=== PATIENT | male | born 1945 | race Caucasian/White ===

== ENCOUNTER 2017-06-03 15:33 | Inpatient (IN) | payer OTHER ==
[~2017-06-03] VITALS: Ht 177.8 cm; Wt 82.4 kg
[2017-06-03] MEDS ORDERED: ACETAMINOPHEN 500 MG TAB PO STA (16:06)
[2017-06-03] MEDS ORDERED: PIPERACILLIN/TAZOBACTAM 4.5 GM/100ML D5W IV STA (16:06)
[2017-06-03] MEDS ORDERED: SODIUM CHLORIDE 0.9% 1000ML 500 ML IV ONE (16:06)
[2017-06-03] MEDS ORDERED: DEXAMETHASONE INJ 10 MG in SYRINGE 0 ML IV STA (16:10)
[2017-06-03] MEDS ORDERED: OPTIRAY 320 IV PRN (16:15)
--- NOTE | 2017-06-03 16:27 | DIAGNOSTIC IMAGING REPORT ---
CHEST ONE VIEW PORTABLE CLINICAL HISTORY: 71 years-old Male presenting with Sepsis. TECHNIQUE: Portable upright AP view of the chest was obtained. COMPARISON: None. FINDINGS: Atherosclerosis of aortic arch. Cardiac silhouette mildly enlarged. No focal opacity. No large effusion or pneumothorax. Calcified granuloma may be present at the right lung base. Osseous structures normal. Upper abdomen normal. IMPRESSION: 1. Cardiomegaly. No other convincing evidence of acute cardiopulmonary disease. Electronically signed by: Billy Bolton M.D. 06/03/2017 4:26 PM Dictated Date/Time: 06/03/2017 4:26 PM
[2017-06-03] MEDS ORDERED: ACETAMINOPHEN SUSP 160 MG/5 ML UDC ONE (16:49)
[2017-06-03 16:52] LABS: BASO % 0.3 %; BASO ABS # 0.04 K/uL (0-0.2); EOS % 0.2 %; EOS ABS # 0.02 K/uL (0-0.5); HEMATOCRIT 44.8 % (42-52); HEMOGLOBIN 15.7 g/dL (14.0-18.0); IG# 0.03 K/uL (0.00-0.02); LYMPH ABS # 1.29 K/uL (1.2-3.4); MEAN CELL VOLUME 88.7 fL (80-100); MEAN CORPUSCULAR HEMOGLOBIN 31.1 pg (25-34); MEAN PLATELET VOLUME 9.9 fL (7.4-10.4); MONO % 8.3 %; MONO ABS # 1.07 K/uL (0.11-0.59); PLATELET COUNT 177 K/uL (130-400); RED CELL DISTRIBUTION WIDTH CV 12.9 % (11.5-14.5); RED CELL DISTRIBUTION WIDTH SD 41.8 fL (36.4-46.3); WHITE BLOOD COUNT 12.95 K/uL (4.8-10.8)
[2017-06-03] MEDS ORDERED: DEXAMETHASONE **PF** INJ 10 MG/ML VIAL ONE (16:52)
[2017-06-03 17:03] LABS: PTT PATIENT 26.5 SECONDS (21.0-31.0)
[2017-06-03 17:13] LABS: ALBUMIN 3.6 gm/dl (3.4-5.0); CALCIUM 9.1 mg/dl (8.5-10.1); CREATININE 0.96 mg/dl (0.60-1.40); POTASSIUM 3.9 mmol/L (3.5-5.1)
[2017-06-03 17:15] LABS: TOTAL PROTEIN 7.7 gm/dl (6.4-8.2)
--- NOTE | 2017-06-03 17:55 | DIAGNOSTIC IMAGING REPORT ---
SOFT TISSUE NECK WITH CLINICAL HISTORY: 71 years-old Male presenting with narrowing on plain film, fever. TECHNIQUE: Multidetector CT of the neck was performed after the administration of intravenous contrast. IV contrast: 119 mL of Optiray 320.. A dose lowering technique was used consistent with the principles of ALARA (as low as reasonably achievable). COMPARISON: Radiograph from earlier the same day. CT DOSE (mGy.cm): The estimated cumulative dose is 498.46 mGy.cm. FINDINGS: Staffing Executive topogram: Unremarkable. Atherosclerosis of the carotid bifurcations without significant stenosis. Atherosclerosis of the cavernous segments of the internal carotid arteries also noted. Limited intracranial evaluation within normal limits. Inflammation noted along the right carotid space. The right jugular vein remains patent. Extensive thickening of the aryepiglottic folds. The epiglottis is normal. Mild mucosal hyperemia of the aryepiglottic folds without local nodular suspicious enhancement. There is narrowing of the airway at the level of the true and false vocal folds. Mild mucosal thickening in the maxillary sinuses, left greater than right. No lymphadenopathy though numerous small lymph nodes are evident bilaterally, the largest in the right jugulodigastric region measuring 1.3 cm in the long axis. Parotid submandibular, and thyroid glands normal. Lung apices clear. Mild degenerative changes of the cervical spine. Skull base intact. IMPRESSION: Extensive thickening of the area epiglottic folds with laryngeal narrowing, raising concern for impending airway obstruction. Consider direct visualization. The lack of focal nodular enhancement in this region decreases concern for neoplasm. Rather these findings are most concerning for an infectious or inflammatory etiology. The report will be called/faxed according to standard departmental protocol. Electronically signed by: Billy Bolton M.D. 06/03/2017 5:54 PM Dictated Date/Time: 06/03/2017 5:48 PM
[2017-06-03] MEDS ORDERED: POTA1CAP2 PO (18:08)
[2017-06-03] MEDS ORDERED: BENZOCAIN/TETRACA/BUTAM SPRAY 200 APPLN/20 GM SPRY ONE (18:25)
[2017-06-03] MEDS ORDERED: LIDOCAINE 4% W/AFRIN NASAL SOLN 4ML ONE (18:26)
[2017-06-03] MEDS ORDERED: ONDANSETRON INJ 2 MG/ML 2 ML VIAL IV PRN (19:00)
[2017-06-03] MEDS ORDERED: ALUMINUM/MAGNESIUM/SIMETH (MAALOX MAX) 30 ML UDC PO PRN (19:00)
[2017-06-03] MEDS ORDERED: MAGNESIUM HYDROXIDE SUSP 30 ML UDC PO PRN (19:00)
[2017-06-03] MEDS ORDERED: ACETAMINOPHEN 325 MG TAB PO PRN (19:00)
[2017-06-03] MEDS ORDERED: CLINDAMYCIN IV 600 MG in DEXTROSE 5% 50ML 50 ML IV SCH (19:00)
[2017-06-03] MEDS ORDERED: PIPERACILL/TAZOBAC CONSULT ACTIVE PRN (19:15)
--- NOTE | 2017-06-03 19:26 | History and Physical ---
History & Physical Date & Time of Service: Jun 03, 2017 at 19:00 Chief Complaint: Partial Airway Obstruction Primary Care Physician: Cassi Chu C.R.N.P History of Present Illness Source: patient, clinic records, hospital records Patient is a pleasant 71 y/o male, with no significant PMHx, who presented to the ED via EMS from PCP office due to abnormal soft tissue x-ray of throat. Patient has been dealing with a sore throat for roughly 1 month now. He was placed on Amoxicillin approximately 3 weeks ago. Initially he did better until about 2-3 days ago when symptoms reoccurred. This AM, he has difficulty with swallowing and worsening sore throat. He saw his PCP today who did an x-ray showing epiglottis and larynx narrowing, who encouraged him to come to [facility] ED. +fevers. Patient denies any chills, sweats, lightheadedness, dizziness, vision changes, CP, palpitations, edema, SOB, wheezing, cough, abdominal pain, nausea, vomiting, diarrhea, urinary symptoms, melena, numbness/tingling, weakness, muscle/joint pain, anxiety/depression, active bleeding, or new skin discoloration/changes. Currently, patient feels his symptoms have improved- given IV Zosyn and Dexamethasone in ED. ENT, Dr. Salazar saw patient in ED- admit on Rocephin, Dexamethasone, place in ICU for close monitoring. Past Medical/Surgical History Medical Problems: (1) Epiglottitis (2) Finger laceration involving tendon (3) No known problems Family History Denies significant family history Social History Smoking Status: Never Smoker Alcohol Use: none Drug Use: none Allergies Coded Allergies: No Known Allergies (Unverified , 04/27/15) Home Medications Scheduled Potassium Chloride (Potassium Chloride Er), 2 CAP PO DAILY Physical Exam Vital Signs Date Time Temp Pulse Resp B/P (MAP) Pulse Ox O2 Delivery O2 Flow Rate FiO2 06/03/17 17:11 75 16 133/64 95 Room Air 06/03/17 16:55 97 Room Air 06/03/17 15:42 38.8 73 153/89 96 Room Air General Appearance: no apparent distress Head: normocephalic, atraumatic Eyes: normal inspection, PERRL ENT: hearing grossly normal Neck: supple, + adenopathy present (R-side, anterior) Respiratory/Chest: lungs clear, no respiratory distress, no accessory muscle use Cardiovascular: regular rate, rhythm Abdomen/GI: normal bowel sounds, non tender, soft Back: normal inspection Extremities/Musculoskelatal: no calf tenderness, no pedal edema Neurologic/Psych: alert, normal mood/affect, oriented x 3 Skin: normal color, warm/dry, no rash Diagnostics Laboratory Results Results Past 24 Hours Test 06/03/17 16:29 06/03/17 16:46 06/03/17 17:00 Range/Units White Blood Count 12.95 4.8-10.8 K/uL Red Blood Count 5.05 4.7-6.1 M/uL Hemoglobin 15.7 14.0-18.0 g/dL Hematocrit 44.8 42-52 % Mean Corpuscular Volume 88.7 80-100 fL Mean Corpuscular Hemoglobin 31.1 25-34 pg Mean Corpuscular Hemoglobin Concent 35.0 32-36 g/dl Platelet Count 177 130-400 K/uL Mean Platelet Volume 9.9 7.4-10.4 fL Neutrophils (%) (Auto) 81.0 % Lymphocytes (%) (Auto) 10.0 % Monocytes (%) (Auto) 8.3 % Eosinophils (%) (Auto) 0.2 % Basophils (%) (Auto) 0.3 % Neutrophils # (Auto) 10.50 1.4-6.5 K/uL Lymphocytes # (Auto) 1.29 1.2-3.4 K/uL Monocytes # (Auto) 1.07 0.11-0.59 K/uL Eosinophils # (Auto) 0.02 0-0.5 K/uL Basophils # (Auto) 0.04 0-0.2 K/uL RDW Standard Deviation 41.8 36.4-46.3 fL RDW Coefficient of Variation 12.9 11.5-14.5 % Immature Granulocyte % (Auto) 0.2 % Immature Granulocyte # (Auto) 0.03 0.00-0.02 K/uL Prothrombin Time 10.6 9.0-12.0 SECONDS Prothromb Time International Ratio 1.0 0.9-1.1 Activated Partial Thromboplast Time 26.5 21.0-31.0 SECONDS Partial Thromboplastin Ratio 1.0 Sodium Level 138 136-145 mmol/L Potassium Level 3.9 3.5-5.1 mmol/L Chloride Level 103 98-107 mmol/L Carbon Dioxide Level 26 21-32 mmol/L Anion Gap 9.0 3-11 mmol/L Blood Urea Nitrogen 17 7-18 mg/dl Creatinine 0.96 0.60-1.40 mg/dl Est Creatinine Clear Calc Drug Dose 75.0 ml/min Estimated GFR () 93.1 Estimated GFR (Non- 80.3 BUN/Creatinine Ratio 18.2 10-20 Random Glucose 99 70-99 mg/dl Calcium Level 9.1 8.5-10.1 mg/dl Total Bilirubin 1.3 0.2-1 mg/dl Aspartate Amino Transf (AST/SGOT) 11 15-37 U/L Alanine Aminotransferase (ALT/SGPT) 22 12-78 U/L Alkaline Phosphatase 74 45-117 U/L Total Protein 7.7 6.4-8.2 gm/dl Albumin 3.6 3.4-5.0 gm/dl Globulin 4.1 2.5-4.0 gm/dl Albumin/Globulin Ratio 0.9 0.9-2 Bedside Lactic Acid Venous 0.90 0.90-1.70 mmol/L Urine Color DK YELLOW Urine Appearance CLEAR CLEAR Urine pH 5.0 4.5-7.5 Urine Specific [place] 1.033 1.000-1.030 Urine Protein NEG NEG Urine Glucose (UA) NEG NEG Urine Ketones TRACE NEG Urine Occult Blood 1+ NEG Urine Nitrite NEG NEG Urine Bilirubin NEG NEG Urine Urobilinogen NEG NEG Urine Leukocyte Esterase NEG NEG Urine WBC (Auto) 1-5 0-5 /hpf Urine RBC (Auto) 10-30 0-4 /hpf Urine Hyaline Casts (Auto) 1-5 0-5 /lpf Urine Epithelial Cells (Auto) 0-5 0-5 /lpf Urine Bacteria (Auto) NEG NEG Microbiology Results 06/03/17 Blood Culture, Received Pending 06/03/17 Blood Culture, Received Pending Diagnostic Radiology SOFT TISSUE NECK WITH CLINICAL HISTORY: 71 years-old Male presenting with narrowing on plain film, fever. TECHNIQUE: Multidetector CT of the neck was performed after the administration of intravenous contrast. IV contrast: 119 mL of Optiray 320.. A dose lowering technique was used consistent with the principles of ALARA (as low as reasonably achievable). COMPARISON: Radiograph from earlier the same day. CT DOSE (mGy.cm): The estimated cumulative dose is 498.46 mGy.cm. FINDINGS: Technical Project Coordinator topogram: Unremarkable. Atherosclerosis of the carotid bifurcations without significant stenosis. Atherosclerosis of the cavernous segments of the internal carotid arteries also noted. Limited intracranial evaluation within normal limits. Inflammation noted along the right carotid space. The right jugular vein remains patent. Extensive thickening of the aryepiglottic folds. The epiglottis is normal. Mild mucosal hyperemia of the aryepiglottic folds without local nodular suspicious enhancement. There is narrowing of the airway at the level of the true and false vocal folds. Mild mucosal thickening in the maxillary sinuses, left greater than right. No lymphadenopathy though numerous small lymph nodes are evident bilaterally, the largest in the right jugulodigastric region measuring 1.3 cm in the long axis. Parotid submandibular, and thyroid glands normal. Lung apices clear. Mild degenerative changes of the cervical spine. Skull base intact. IMPRESSION: Extensive thickening of the area epiglottic folds with laryngeal narrowing, raising concern for impending airway obstruction. Consider direct visualization. The lack of focal nodular enhancement in this region decreases concern for neoplasm. Rather these findings are most concerning for an infectious or inflammatory etiology. The report will be called/faxed according to standard departmental protocol. Electronically signed by: Billy Bolton M.D. 06/03/2017 5:54 PM Dictated Date/Time: 06/03/2017 5:48 PM The status of this report is Signed. Draft = Not yet reviewed or approved by Radiologist. Signed = Reviewed and approved by Radiologist. CHEST ONE VIEW PORTABLE CLINICAL HISTORY: 71 years-old Male presenting with Sepsis. TECHNIQUE: Portable upright AP view of the chest was obtained. COMPARISON: None. FINDINGS: Atherosclerosis of aortic arch. Cardiac silhouette mildly enlarged. No focal opacity. No large effusion or pneumothorax. Calcified granuloma may be present at the right lung base. Osseous structures normal. Upper abdomen normal. IMPRESSION: 1. Cardiomegaly. No other convincing evidence of acute cardiopulmonary disease. Electronically signed by: Billy Bolton M.D. 06/03/2017 4:26 PM Dictated Date/Time: 06/03/2017 4:26 PM The status of this report is Signed. Draft = Not yet reviewed or approved by Radiologist. Signed = Reviewed and approved by Radiologist. Impression Assessment and Plan Patient is a pleasant 71 y/o male, with no significant PMHx, who presented to the ED via EMS from PCP office due to abnormal soft tissue x-ray of throat. Epiglottis: - Admit to ICU- consult [facility] - Continuous pulse ox - IV Rocephin - BCx pending - Obtain mono, strep, and throat culture - IV Dexamethasone 10 mg BID - IV NSS @ 100 ml/hr while NPO - Tylenol PRN for pain/fever n - Consult ENT, appreciate recommendations- Rocephin and Dexamethasone DVT prophylaxis: TEDs/SCDs, ambulation Code status: LEVEL V, DNR Dispo: From home- no discharge needs anticipated Resuscitation Status LEVEL V, DNR VTE Prophylaxis Will order VTE Prophylaxis: Yes
--- NOTE | 2017-06-03 20:09 | EMERGENCY ROOM VISIT NOTE ---
History Report prepared by Elo: Berna Sandoval Under the Supervision of: Dr. Celso Muñoz M.D. First contact with patient: 15:57 Chief Complaint: ABNORMAL DIAGNOSTIC TESTING Stated Complaint: PARTIAL AIRWAY OBSTRUCTION History of Present Illness The patient is a 71 year old male who presents to the Emergency Room with complaints of worsening throat pain over the past couple of weeks. He has also had difficulty swallowing. He is able to swallow, but the pain worsens with swallowing. He was on Amoxicillin 3 weeks ago for the pain. The pain had worsened over the past 3-4 days. The patient was seen at [facility] today and had a negative strep test. He was found to have narrowing of the airway on a neck X-ray and was sent here. He has had a cough mostly in the mornings. His cough is productive only at first. He reports some intermittent chills. He denies any fever, urinary symptoms, diarrhea, vomiting, or SOB. He does smoke. He is not on any medications. Source of History: patient Onset: couple weeks ago Position: throat Timing: worsening Modifying Factors (Worsening): other (swallowing) Associated Symptoms: + chills, + cough, No fevers, No SOB, No vomiting, No diarrhea, No urinary symptoms Review of Systems See HPI for pertinent positives & negatives. A total of 10 systems reviewed and were otherwise negative. Past Medical & Surgical Medical Problems: (1) Epiglottitis (2) No known problems Family History No pertinent family history stated. Social History Smoking Status: Current Every Day Smoker Current/Historical Medications Scheduled Potassium Chloride (Potassium Chloride Er), 2 CAP PO DAILY Allergies Coded Allergies: No Known Allergies (Unverified , 04/27/15) Physical Exam Vital Signs Date Time Temp Pulse Resp B/P (MAP) Pulse Ox O2 Delivery O2 Flow Rate FiO2 06/03/17 19:00 75 135/70 94 Room Air 06/03/17 17:11 75 16 133/64 95 Room Air 06/03/17 16:55 97 Room Air 06/03/17 15:42 38.8 73 153/89 96 Room Air Physical Exam GENERAL: Patient is in no acute distress. HEENT: No acute trauma, normocephalic atraumatic, mucous membranes moist, no nasal congestion, no scleral icterus. No throat erythema or exudate, no uvular edema. NECK: No stridor, tender firm enlarged gland along the right anterior neck, no meningismus, trachea is midline. LUNGS: Clear to auscultation bilaterally, no wheeze, no rhonchi, breath sounds equal. HEART: Without murmurs gallops or rubs, regular rate and rhythm. ABDOMEN: Soft, nontender, bowel sounds positive, no hernias, no peritonitis. EXTREMITIES: No cyanosis or edema, full range of motion of all the joints without pain or difficulty, no signs for acute trauma. NEUROLOGIC: Oriented x 3, no acute motor or sensory deficits, no focal weakness. SKIN: No rash, no jaundice, no diaphoresis. Medical Decision & Procedures ER Provider Diagnostic Interpretation: X-ray results as stated below per interpretation by me and the radiologist. Radiology results as stated below per my review and radiologist interpretation: CHEST ONE VIEW PORTABLE CLINICAL HISTORY: 71 years-old Male presenting with Sepsis. TECHNIQUE: Portable upright AP view of the chest was obtained. COMPARISON: None. FINDINGS: Atherosclerosis of aortic arch. Cardiac silhouette mildly enlarged. No focal opacity. No large effusion or pneumothorax. Calcified granuloma may be present at the right lung base. Osseous structures normal. Upper abdomen normal. IMPRESSION: 1. Cardiomegaly. No other convincing evidence of acute cardiopulmonary disease. Electronically signed by: Billy Bolton M.D. 06/03/2017 4:26 PM Dictated Date/Time: 06/03/2017 4:26 PM SOFT TISSUE NECK WITH CLINICAL HISTORY: 71 years-old Male presenting with narrowing on plain film, fever. TECHNIQUE: Multidetector CT of the neck was performed after the administration of intravenous contrast. IV contrast: 119 mL of Optiray 320.. A dose lowering technique was used consistent with the principles of ALARA (as low as reasonably achievable). COMPARISON: Radiograph from earlier the same day. CT DOSE (mGy.cm): The estimated cumulative dose is 498.46 mGy.cm. FINDINGS: Food Editor topogram: Unremarkable. Atherosclerosis of the carotid bifurcations without significant stenosis. Atherosclerosis of the cavernous segments of the internal carotid arteries also noted. Limited intracranial evaluation within normal limits. Inflammation noted along the right carotid space. The right jugular vein remains patent. Extensive thickening of the aryepiglottic folds. The epiglottis is normal. Mild mucosal hyperemia of the aryepiglottic folds without local nodular suspicious enhancement. There is narrowing of the airway at the level of the true and false vocal folds. Mild mucosal thickening in the maxillary sinuses, left greater than right. No lymphadenopathy though numerous small lymph nodes are evident bilaterally, the largest in the right jugulodigastric region measuring 1.3 cm in the long axis. Parotid submandibular, and thyroid glands normal. Lung apices clear. Mild degenerative changes of the cervical spine. Skull base intact. IMPRESSION: Extensive thickening of the area epiglottic folds with laryngeal narrowing, raising concern for impending airway obstruction. Consider direct visualization. The lack of focal nodular enhancement in this region decreases concern for neoplasm. Rather these findings are most concerning for an infectious or inflammatory etiology. The report will be called/faxed according to standard departmental protocol. Electronically signed by: Billy Bolton M.D. 06/03/2017 5:54 PM Dictated Date/Time: 06/03/2017 5:48 PM Laboratory Results 06/03/17 16:29 Red Blood Count 5.05, Mean Corpuscular Volume 88.7, Mean Corpuscular Hemoglobin 31.1, Mean Corpuscular Hemoglobin Concent 35.0, Mean Platelet Volume 9.9, Neutrophils (%) (Auto) 81.0, Lymphocytes (%) (Auto) 10.0, Monocytes (%) (Auto) 8.3, Eosinophils (%) (Auto) 0.2, Basophils (%) (Auto) 0.3, Neutrophils # (Auto) 10.50, Lymphocytes # (Auto) 1.29, Monocytes # (Auto) 1.07, Eosinophils # (Auto) 0.02, Basophils # (Auto) 0.04 06/03/17 16:29 Test 06/03/17 16:29 06/03/17 16:46 06/03/17 17:00 White Blood Count 12.95 K/uL (4.8-10.8) Red Blood Count 5.05 M/uL (4.7-6.1) Hemoglobin 15.7 g/dL (14.0-18.0) Hematocrit 44.8 % (42-52) Mean Corpuscular Volume 88.7 fL (80-100) Mean Corpuscular Hemoglobin 31.1 pg (25-34) Mean Corpuscular Hemoglobin Concent 35.0 g/dl (32-36) Platelet Count 177 K/uL (130-400) Mean Platelet Volume 9.9 fL (7.4-10.4) Neutrophils (%) (Auto) 81.0 % Lymphocytes (%) (Auto) 10.0 % Monocytes (%) (Auto) 8.3 % Eosinophils (%) (Auto) 0.2 % Basophils (%) (Auto) 0.3 % Neutrophils # (Auto) 10.50 K/uL (1.4-6.5) Lymphocytes # (Auto) 1.29 K/uL (1.2-3.4) Monocytes # (Auto) 1.07 K/uL (0.11-0.59) Eosinophils # (Auto) 0.02 K/uL (0-0.5) Basophils # (Auto) 0.04 K/uL (0-0.2) RDW Standard Deviation 41.8 fL (36.4-46.3) RDW Coefficient of Variation 12.9 % (11.5-14.5) Immature Granulocyte % (Auto) 0.2 % Immature Granulocyte # (Auto) 0.03 K/uL (0.00-0.02) Prothrombin Time 10.6 SECONDS (9.0-12.0) Prothromb Time International Ratio 1.0 (0.9-1.1) Activated Partial Thromboplast Time 26.5 SECONDS (21.0-31.0) Partial Thromboplastin Ratio 1.0 Anion Gap 9.0 mmol/L (3-11) Est Creatinine Clear Calc Drug Dose 75.0 ml/min Estimated GFR () 93.1 Estimated GFR (Non- 80.3 BUN/Creatinine Ratio 18.2 (10-20) Calcium Level 9.1 mg/dl (8.5-10.1) Total Bilirubin 1.3 mg/dl (0.2-1) Aspartate Amino Transf (AST/SGOT) 11 U/L (15-37) Alanine Aminotransferase (ALT/SGPT) 22 U/L (12-78) Alkaline Phosphatase 74 U/L (45-117) Total Protein 7.7 gm/dl (6.4-8.2) Albumin 3.6 gm/dl (3.4-5.0) Globulin 4.1 gm/dl (2.5-4.0) Albumin/Globulin Ratio 0.9 (0.9-2) Monoscreen NEG (NEG) Bedside Lactic Acid Venous 0.90 mmol/L (0.90-1.70) Urine Color DK YELLOW Urine Appearance CLEAR (CLEAR) Urine pH 5.0 (4.5-7.5) Urine Specific [place] 1.033 (1.000-1.030) Urine Protein NEG (NEG) Urine Glucose (UA) NEG (NEG) Urine Ketones TRACE (NEG) Urine Occult Blood 1+ (NEG) Urine Nitrite NEG (NEG) Urine Bilirubin NEG (NEG) Urine Urobilinogen NEG (NEG) Urine Leukocyte Esterase NEG (NEG) Urine WBC (Auto) 1-5 /hpf (0-5) Urine RBC (Auto) 10-30 /hpf (0-4) Urine Hyaline Casts (Auto) 1-5 /lpf (0-5) Urine Epithelial Cells (Auto) 0-5 /lpf (0-5) Urine Bacteria (Auto) NEG (NEG) Laboratory results reviewed by me. Medications Administered Medications (Trade) Dose Ordered Sig/Joao Route Start Time Stop Time Status Last Admin Dose Admin Sodium Chloride 500 ml @ 999 mls/hr Q31M ONCE IV 06/03/17 16:06 06/03/17 16:36 DC 06/03/17 16:44 999 MLS/HR Piperacillin Sod/ Tazobactam Sod (Zosyn Iv) 4.5 gm ONE STAT IV 06/03/17 16:06 06/03/17 16:10 DC 06/03/17 16:44 4.5 GM Dexamethasone Sodium Phosphate 10 mg/Syringe 2.5 ml @ 1 mls/min NOW STAT IV 06/03/17 16:10 06/03/17 16:12 DC 06/03/17 16:54 1 MLS/MIN Acetaminophen (Tylenol Children'S Susp) 640 mg STK-MED ONCE .ROUTE 06/03/17 16:49 06/03/17 16:50 DC 06/03/17 16:54 640 MG Benzocaine/ Butamben/ Tetracaine HCl (Cetacaine [place]) 1 appln STK-MED ONCE .ROUTE 06/03/17 18:25 06/03/17 18:26 DC 06/03/17 18:45 1 APPLN Lidocaine HCl (Afrin W/ Lidocaine 4%) 4 ml STK-MED ONCE .ROUTE 06/03/17 18:26 06/03/17 18:27 DC 06/03/17 18:50 4 ML ED Course 1604: The patient was evaluated in room B11B. A complete history and physical exam was performed. 1606: Zosyn Iv 4.5 gm IV, Sodium Chloride 500 ml @ 999 mls/hr IV. 1610: Dexamethasone Sodium Phosphate 10 mg/Syringe 2.5 ml @ 1 mls/min IV. 1649: Acetaminophen 640 mg PO. 181: I discussed the patient's case with Reece Escobar ENT. He will come evaluate the patient. 1818: Upon reexamination the patient is resting comfortably. I discussed results and treatment plan with the patient. He verbalizes agreement and understanding. The patient will be evaluated for further management. 1824: I discussed the patient's case [place] [facility] [place] The patient will be evaluated for further management. Medical Decision Differential diagnoses considered include sepsis, epiglottitis, pharyngeal abscess, retropharyngeal abscess, mass or tumor, lymphadenopathy, pneumonia, dehydration, failed outpatient treatment. There is a mild leukocytosis, this would be consistent with infection. No concerning anemia. No significant electrolyte abnormality, kidney failure or hepatitis. Lactic acid level was not elevated making sepsis less likely. Blood cultures are pending. Urinalysis did not show infection. Chest film did not show pneumonia or CHF. Soft tissue neck CT showed some airway compromise with a lot of edema of the soft tissues in the area of the larynx and epiglottis. No mention of abscess. The patient received IV Decadron, IV Zosyn. He did receive some IV saline. The patient is not stridorous, he is able to swallow but has pain to do so. I had ordered for oral Tylenol, this was given in the liquid form. I did speak with the ears nose and throat physician, he did evaluate the patient at the bedside, he recommended an ICU stay and very close observation of the airway. I spoke with case management. I did speak with the on-call hospitalist. The patient has a laryngeal infection, he appears to have epiglottitis. Medication Reconcilliation Current Medication List: was personally reviewed by me Blood Pressure Screening Patient's blood pressure: Elevated blood pressure Referred to hospitalist. Consults Time Called: 1804 Consulting Physician: Reece Escobar ENT Returned Call: [phone] I discussed the patient's case with him. He will come evaluate the patient. Additional Consults: Consulted Physician: Dr. Munroe [facility] [place] Returned Call: [phone] Additional Comments: Discussed the patient's case. The patient will be evaluated for further management. Impression Primary Impression: Airway compromise Additional Impressions: Infection of larynx Difficulty swallowing Epiglottitis Scribe Attestation The scribe's documentation has been prepared under my direction and personally reviewed by me in its entirety. I confirm that the note above accurately reflects all work, treatment, procedures, and medical decision making performed by me. Departure Information Dispostion Being Evaluated By Hospitalist Prescriptions Potassium Chloride (POTASSIUM CHLORIDE ER) 10 Meq Cap 2 CAP PO DAILY for 5 Days, #10 CAP 1 Refill Prov: Celso Muñoz M.D. 06/03/17 Referrals Cassi Chu C.R.NMohanP (PCP) Patient Instructions My [facility] Problem Qualifiers
--- NOTE | 2017-06-03 20:12 | ENT CONSULTATION ---
DATE OF CONSULTATION: 06/03/2017 DOCTOR REQUESTING CONSULTATION: Dr. Muñoz who is the ED physician and Dr. Munroe who is the hospitalist. INDICATION: Need for evaluation of the upper airway. HISTORY OF PRESENT ILLNESS: This is a 71-year-old man who has not felt well for several weeks. About 3 weeks ago, he went to his doctor for sore throat. He says that he hardly ever goes to a doctor. He was placed on amoxicillin. He did not feel it helped very much. He did not have a fever at that time. However, today he developed a fever and noticed a lump for several days in the right side of his neck. He is a longtime smoker since his early 20s and currently smokes about a half pack a day. He does not drink alcohol. He came to the Emergency Department late this afternoon and was treated with Zosyn and steroids and he said that since coming in, his ability to swallow has improved and his ability to breathe has improved. As far as past medical history and review of symptoms, all that is covered in the ED H and P. As far as physical exam, he was evaluated in room B11. He was alert and cooperative. There was no hot potato voice. There was no stridor. He looked very much comfortable. His respiratory rate was about 10. I looked at his oral cavity and he is edentulous. There were no lesions of the floor of mouth, his hard palate, soft palate, or the oropharynx. There were no abnormalities of the peritonsillar area. Palpation of the neck showed a sensitive either right submandibular triangle node or a sensitive right submandibular gland. There was no stone palpated in right Myah's duct. I performed flexible fiberoptic laryngoscopy and he had no masses in the nose, the nasopharynx. Transition from the nasopharynx to oropharynx was within normal limits. There were no lesions of the tongue base. However, he did have a very minimal epiglottitis. The epiglottis was about twice normal thickness. It was red. There were no lesions seen on the epiglottis. I was easily able to see the glottis and he had normal true vocal cord mobility and appearance. The subglottis was completely within normal limits. ASSESSMENT AND PLAN: Epiglottitis. I have spoken to Dr. Munroe who is admitting the patient and she will make sure that he is admitted to the ICU with a trach set at the bedside. She will continue him on steroids and I also recommended for ceftriaxone 50-75 mg/kg IV once a day up to a maximum of 2 grams. If the patient deteriorates, then I should be contacted immediately for control of the airway. There should be a trach set at the bedside. Upon discharge, the patient should see me in my office so I can reassess the airway. RICHMONDD
--- NOTE | 2017-06-03 20:55 | Critical Care Consultation ---
Critical Care Consultation Date of Consultation: Jun 03, 2017. Attending Physician: Dr. Munroe Reason for Consultation: Epiglottitis History of Present Illness Gurvinder Otero is a 71 yo Rastafarian man that was seen in an Acute Care visit by Karo Chu for fever, sore throat and difficulty swallowing . He had previously been seen on 05/14 by the same clinic as a new pt at which time he was prescribed Amoxicillin which gave mild improvement until recently. A single large lymph node to the right neck was palpated, fever of 100.1 and pt complained of difficulty handling secretions. X-ray was preformed which demonstrated "findings concerning for significant soft tissue inflammation and swelling of the epiglottis, aryepiglottic folds, and larynx with resultant narrowing of the airway at the level of the larynx." Rapid strep in office was negative. Secondary to pt being Rastafarian and having no transport to the hospital, an ambulance was called and he was brought to [facility] for further evaluation. ED course included 1L NSS bolus, Tylenol 640mg PO, IV Zosyn and Dexamethasone IV. CT of soft tissue neck demonstrated "Extensive thickening of the area epiglottic folds with laryngeal narrowing, raising concern for impending airway obstruction. Consider direct visualization. The lack of focal nodular enhancement in this region decreases concern for neoplasm. Rather these findings are most concerning for an infectious or inflammatory etiology." Pt was seen in consult by Dr. Salazar of ENT and underwent flexible fiberoptic laryngoscopy which demonstrated no masses. No lesions of the tongue base. Dr. Salazar felt there was "very minimal epiglottis" and described it as twice its normal thickness. He requested a trach kit be at the pts bedside and to be called immediately should pt decompensate from a respiratory standpoint. Pt was placed on IV Rocephin and IV Dexamethasone and placed in the ICU for close monitoring. Pt does not undergo routine medical care. Current health history includes tobacco; 6-7 cigars for 40+ years. He denies alcohol use. Does not take any chronic medications despite his chart stating he takes Potassium supplement. Admits to rheumatic fever as a child, fractured left ankle in the 80's and laceration involving tendon that is in his chart from 2016. The patient denies weight loss, fever, dizziness, headache, muscle weakness, numbness, change in vision, chest pain, palpitations, awareness of tachyarrhythmias, leg swelling, shortness of breath, nausea, vomiting, bloody stools, diarrhea, constipation, abdominal pain, other changes in urine or bowel habits. Pt states he had a bout of diarrhea back around the time he took Amoxicillin. He has a chronic morning cough that is mildly productive and unchanged from normal. His swallowing and sore throat feeling have improved since treatment in the ED. Past Medical/Surgical History Medical Problems: Bronchitis Epiglottitis Rheumatic Fever Finger laceration involving tendon Left Ankle Fracture Surgical History: None per pt Family History Non-contributory Social History Smoking Status: Current Every Day Smoker (6-7 cigars since early ) Alcohol Use: none Drug Use: none Marital Status: single (never ) Allergies Coded Allergies: No Known Allergies (Unverified , 04/27/15) Home Medications Scheduled Potassium Chloride (Potassium Chloride Er), 2 CAP PO DAILY Current Inpatient Medications Current Inpatient Medications Medications (Trade) Dose Ordered Sig/Joao Route Start Time Stop Time Status Last Admin Dose Admin Ioversol (Optiray 320) 100 ml UD PRN IV 06/03/17 16:15 06/07/17 16:14 Acetaminophen (Tylenol Tab) 650 mg Q4H PRN PO 06/03/17 19:00 07/03/17 18:59 UNV Al Hydrox/Mg Hydrox/Simethicone (Maalox Max Susp) 15 ml Q4H PRN PO 06/03/17 19:00 07/03/17 18:59 UNV Magnesium Hydroxide (Milk Of Magnesia Susp) 30 ml Q6H PRN PO 06/03/17 19:00 07/03/17 18:59 UNV Polyethylene (Miralax Powder Packet) 17 gm DAILY PRN PO 06/03/17 19:00 07/03/17 18:59 UNV Ondansetron HCl (Zofran Inj) 4 mg Q6H PRN IV 06/03/17 19:00 07/03/17 18:59 UNV Sodium Chloride 1,000 ml @ 100 mls/hr Q10H IV 06/03/17 19:00 07/03/17 18:59 UNV Dexamethasone Sodium Phosphate 10 mg/Syringe 2.5 ml @ 1 mls/min BID IV 06/03/17 21:00 07/03/17 20:59 UNV Ceftriaxone Sodium 2000 mg/ Dextrose 70 ml @ 100 mls/hr Q24H IV 06/03/17 19:30 06/13/17 19:29 UNV Review of Systems 12 systems reviewed and negative other than previously mentioned in the HPI. Physical Exam Date Time Temp Pulse Resp B/P (MAP) Pulse Ox O2 Delivery O2 Flow Rate FiO2 06/03/17 19:00 75 135/70 94 Room Air 06/03/17 17:11 75 16 133/64 95 Room Air 06/03/17 16:55 97 Room Air 06/03/17 15:42 38.8 73 153/89 96 Room Air Vital Signs - as noted Laboratory Data - as noted Physical Exam: General - NAD, voice without abnormality Eyes - PERRL, No icterus, gaze conjugate ENT - Mucosa moist, No evidence of swelling or gross abnormality, No erythema or exudates noted. Edentulous. Neck - Supple, trachea midline, no masses, no JVD or bruits. 1 tender sub- madibular lymph node Lungs - No paradoxical chest wall movement, clear to auscultation bilaterally, no wheezes, rales, or rhonchi Heart - Reg rate and rhythm, No murmur, rubs, clicks, or gallops appreciated Abdomen - BS present, no bruits noted, tympanic to percussion, soft, nontender, nondistended, no organomegaly Extremities - No edema, pedal pulses intact Neuro - A&OX4 Strength extremities equal and appropriate bilaterally Reflexes: Normal and equal CN:PERRL, EOMI, no facial asymmetry, uvula/tongue midline Laboratory Results Last 24 Hours Test 06/03/17 16:29 06/03/17 16:46 06/03/17 17:00 White Blood Count 12.95 K/uL Red Blood Count 5.05 M/uL Hemoglobin 15.7 g/dL Hematocrit 44.8 % Mean Corpuscular Volume 88.7 fL Mean Corpuscular Hemoglobin 31.1 pg Mean Corpuscular Hemoglobin Concent 35.0 g/dl Platelet Count 177 K/uL Mean Platelet Volume 9.9 fL Neutrophils (%) (Auto) 81.0 % Lymphocytes (%) (Auto) 10.0 % Monocytes (%) (Auto) 8.3 % Eosinophils (%) (Auto) 0.2 % Basophils (%) (Auto) 0.3 % Neutrophils # (Auto) 10.50 K/uL Lymphocytes # (Auto) 1.29 K/uL Monocytes # (Auto) 1.07 K/uL Eosinophils # (Auto) 0.02 K/uL Basophils # (Auto) 0.04 K/uL RDW Standard Deviation 41.8 fL RDW Coefficient of Variation 12.9 % Immature Granulocyte % (Auto) 0.2 % Immature Granulocyte # (Auto) 0.03 K/uL Prothrombin Time 10.6 SECONDS Prothromb Time International Ratio 1.0 Activated Partial Thromboplast Time 26.5 SECONDS Partial Thromboplastin Ratio 1.0 Sodium Level 138 mmol/L Potassium Level 3.9 mmol/L Chloride Level 103 mmol/L Carbon Dioxide Level 26 mmol/L Anion Gap 9.0 mmol/L Blood Urea Nitrogen 17 mg/dl Creatinine 0.96 mg/dl Est Creatinine Clear Calc Drug Dose 75.0 ml/min Estimated GFR () 93.1 Estimated GFR (Non- 80.3 BUN/Creatinine Ratio 18.2 Random Glucose 99 mg/dl Calcium Level 9.1 mg/dl Total Bilirubin 1.3 mg/dl Aspartate Amino Transf (AST/SGOT) 11 U/L Alanine Aminotransferase (ALT/SGPT) 22 U/L Alkaline Phosphatase 74 U/L Total Protein 7.7 gm/dl Albumin 3.6 gm/dl Globulin 4.1 gm/dl Albumin/Globulin Ratio 0.9 Monoscreen NEG Bedside Lactic Acid Venous 0.90 mmol/L Urine Color DK YELLOW Urine Appearance CLEAR Urine pH 5.0 Urine Specific [place] 1.033 Urine Protein NEG Urine Glucose (UA) NEG Urine Ketones TRACE Urine Occult Blood 1+ Urine Nitrite NEG Urine Bilirubin NEG Urine Urobilinogen NEG Urine Leukocyte Esterase NEG Urine WBC (Auto) 1-5 /hpf Urine RBC (Auto) 10-30 /hpf Urine Hyaline Casts (Auto) 1-5 /lpf Urine Epithelial Cells (Auto) 0-5 /lpf Urine Bacteria (Auto) NEG Diagnostic Results SOFT TISSUE NECK WITH CLINICAL HISTORY: 71 years-old Male presenting with narrowing on plain film, fever. TECHNIQUE: Multidetector CT of the neck was performed after the administration of intravenous contrast. IV contrast: 119 mL of Optiray 320.. A dose lowering technique was used consistent with the principles of ALARA (as low as reasonably achievable). COMPARISON: Radiograph from earlier the same day. CT DOSE (mGy.cm): The estimated cumulative dose is 498.46 mGy.cm. FINDINGS: Manager Secondary topogram: Unremarkable. Atherosclerosis of the carotid bifurcations without significant stenosis. Atherosclerosis of the cavernous segments of the internal carotid arteries also noted. Limited intracranial evaluation within normal limits. Inflammation noted along the right carotid space. The right jugular vein remains patent. Extensive thickening of the aryepiglottic folds. The epiglottis is normal. Mild mucosal hyperemia of the aryepiglottic folds without local nodular suspicious enhancement. There is narrowing of the airway at the level of the true and false vocal folds. Mild mucosal thickening in the maxillary sinuses, left greater than right. No lymphadenopathy though numerous small lymph nodes are evident bilaterally, the largest in the right jugulodigastric region measuring 1.3 cm in the long axis. Parotid submandibular, and thyroid glands normal. Lung apices clear. Mild degenerative changes of the cervical spine. Skull base intact. IMPRESSION: Extensive thickening of the area epiglottic folds with laryngeal narrowing, raising concern for impending airway obstruction. Consider direct visualization. The lack of focal nodular enhancement in this region decreases concern for neoplasm. Rather these findings are most concerning for an infectious or inflammatory etiology. The report will be called/faxed according to standard departmental protocol. Electronically signed by: Billy Bolton M.D. 06/03/2017 5:54 PM Dictated Date/Time: 06/03/2017 5:48 PM CHEST ONE VIEW PORTABLE CLINICAL HISTORY: 71 years-old Male presenting with Sepsis. TECHNIQUE: Portable upright AP view of the chest was obtained. COMPARISON: None. FINDINGS: Atherosclerosis of aortic arch. Cardiac silhouette mildly enlarged. No focal opacity. No large effusion or pneumothorax. Calcified granuloma may be present at the right lung base. Osseous structures normal. Upper abdomen normal. IMPRESSION: 1. Cardiomegaly. No other convincing evidence of acute cardiopulmonary disease. Electronically signed by: Billy Bolton M.D. 06/03/2017 4:26 PM Dictated Date/Time: 06/03/2017 4:26 PM Assessment & Plan (1) Epiglottitis (2) Difficulty swallowing (3) Airway compromise (4) Infection of larynx PLAN: Resp: * Epiglottitis * ENT: Dr. Salazar consulted, performed flexible fiberoptic laryngoscopy and determined epiglottis to be approx 2x normal size * Trach Kit to remain at bedside * Pt is not showing acute signs such as stridor, drooling, tripoding, or respiratory stress. * Close monitoring in ICU, reevaluate regularly * Continue Rocephin IV q 24 (first doses 06/03) and Dexamethasone IV q12hrs * Will hold Vanco coverage as MRSA Nasal Swab is negative * Spoke with pt at length with Nurse Lakesha Schmitz present as witness. Pt is willing to undergo artificial airway for this diagnosis only. Otherwise he remains a DNI/DNR * Supplemental O2 as needed, currently on room air with adequate saturations ID: * WBCs: 12.95 Leukocytosis * Tmax: 38.8 * Continue Tylenol as fever curve indicates * Trend fever * Lactic Acid: 0.90 * ABX: as above in Resp Fluids/Renal: * NSS at 100mls/hr * No acge, bedside urinal or bathroom * Monitor PRP * Monitor and replete electrolytes per protocol * Pt denies use of Potassium medication at home. Neuro: * A&O * Denies Pain CV: * Monitor on telemetry * No hx of CAD, HTN, dyslipidemia GI/Nutrition: * NPO * Pt being monitored closely for need of artificial airway. * Prophylaxis: Not indicated Heme: * H&H WNL * Prophylaxis: SCDs, ambulation encouraged Endocrine: Accu-Checks per protocol, started insulin infusion for 2 blood sugars greater than 180 Critical Care Time: 0 Minutes; Level 5 Inpatient Billing. This time is exclusive of all separately billable procedures. Thank you for involving us in the care of this patient. Please refer to Dr. Tk Trevizo's addendum for further recommendations. I have personally evaluated and examined this patient. I agree with assessment and plan of Gary Vera PA-C. During my evaluation in the emergency department patient was not having difficulty handling his secretions and had normal voice. He is admitted to the ICU for close observation secondary to risks of a a critical airway should the patient decompensate.
[2017-06-03] MEDS ORDERED: PIPERACILL/TAZOBAC IV 3.375 GM in DEXTROSE 5% 100ML 100 ML IV SCH (21:00)
[2017-06-03] MEDS ORDERED: METHYLPREDNISOLONE IV 60 MG in SYRINGE 0 ML IV SCH (21:00)
[2017-06-03 21:04] VITALS: BP 144/69
[2017-06-03 21:07] VITALS: BP 144/69; PULSE 73; TEMP 37.4; O2SAT 93; Ht 177.8 cm; Wt 82.4 kg
[2017-06-03] MEDS ORDERED: POLYETHYLENE (MIRALAX) 17 GM PACK PO PRN (21:15)
[2017-06-03 22:00] VITALS: BP 133/51; PULSE 79; O2SAT 94
[2017-06-03] MEDS ORDERED: CEFTRIAXONE SOD INJ 2,000 MG in DEXTROSE 5% 50ML 50 ML IV SCH (22:00)
[2017-06-03] MEDS: SODIUM CHLORIDE 0.9% 1000ML 1,000 ML IV SCH (22:38)
[2017-06-03 23:00] VITALS: PULSE 76; O2SAT 90
[2017-06-03 23:01] VITALS: PULSE 82; O2SAT 95
[2017-06-03 23:59] VITALS: O2SAT 95
[2017-06-04] VITALS (11 sets, daily range): BP systolic 100–131; BP diastolic 38–68; PULSE 57–78; TEMP 36.8–37.2; O2SAT 90–98
[2017-06-04] MEDS ORDERED: DEXAMETHASONE INJ 10 MG in SYRINGE 0 ML IV SCH (06:00)
[2017-06-04 06:09] LABS: HEMATOCRIT 42.6 % (42-52); HEMOGLOBIN 14.9 g/dL (14.0-18.0); MEAN CELL VOLUME 88.8 fL (80-100); MEAN PLATELET VOLUME 10.2 fL (7.4-10.4); PLATELET COUNT 175 K/uL (130-400); RED CELL DISTRIBUTION WIDTH CV 12.5 % (11.5-14.5); RED CELL DISTRIBUTION WIDTH SD 40.2 fL (36.4-46.3); WHITE BLOOD COUNT 13.65 K/uL (4.8-10.8)
[2017-06-04 06:41] LABS: CALCIUM 8.7 mg/dl (8.5-10.1); CREATININE 0.88 mg/dl (0.60-1.40); PHOSPHORUS 3.8 mg/dl (2.5-4.9); POTASSIUM 4.1 mmol/L (3.5-5.1)
[2017-06-04] MEDS ORDERED: AMOXICILLIN/CLAVULANATE TAB 875 MG TAB PO SCH (09:00)
[2017-06-04] MEDS: SODIUM CHLORIDE 0.9% 1000ML 1,000 ML IV SCH (09:52)
--- NOTE | 2017-06-04 11:49 | Critical Care Progress Note ---
Critical Care Progress Note Date of Service Jun 04, 2017. ICU Day ICU Day Number: [address] Trevizo Subjective No complaints, feels significantly improved. When I entered the room he was actually laying flat in bed has always been able to tolerate his secretions. Patient was given a single dose of Augmentin this morning and was able to swallow without difficulty. Objective General: Alert. nontoxic. Skin: Warm, dry, Head: Atraumatic Ears, nose, mouth and throat: airway patent Cardiovascular: Normal peripheral perfusion Respiratory: no respiratory distress Gastrointestinal: Non distended Musculoskeletal: No deformity Assessment & Plan Impression: Epiglottitis * Continue steroids, converted to 6 mg Decadron p.o. twice daily * Transition to oral antibiotics, Augmentin 875 twice daily * Currently asymptomatic and feels improved compared to yesterday DVT prophylaxis * Low risk * Not indicated secondary to ability to ambulate May progress diet as tolerated Stable for downgrade out of ICU Data Medications: Current Inpatient Medications Medications (Trade) Dose Ordered Sig/Joao Route Start Time Stop Time Status Last Admin Dose Admin Ioversol (Optiray 320) 100 ml UD PRN IV 06/03/17 16:15 06/07/17 16:14 Acetaminophen (Tylenol Tab) 650 mg Q4H PRN PO 06/03/17 19:00 07/03/17 18:59 Al Hydrox/Mg Hydrox/Simethicone (Maalox Max Susp) 15 ml Q4H PRN PO 06/03/17 19:00 07/03/17 18:59 Magnesium Hydroxide (Milk Of Magnesia Susp) 30 ml Q6H PRN PO 06/03/17 19:00 07/03/17 18:59 Polyethylene (Miralax Powder Packet) 17 gm DAILY PRN PO 06/03/17 21:15 07/03/17 21:14 Ondansetron HCl (Zofran Inj) 4 mg Q6H PRN IV 06/03/17 19:00 07/03/17 18:59 Sodium Chloride 1,000 ml @ 100 mls/hr Q10H IV 06/03/17 21:15 07/03/17 21:14 06/04/17 09:52 100 MLS/HR Amoxicillin/ Clavulanate Potassium (Augmentin Tab) 875 mg BIDM PO 06/04/17 09:00 06/14/17 08:59 06/04/17 08:46 875 MG Dexamethasone (Decadron Tab) 6 mg BID PO 06/04/17 21:00 07/04/17 20:59 Vital Signs: Date Time Temp Pulse Resp B/P (MAP) Pulse Ox O2 Delivery O2 Flow Rate FiO2 06/04/17 11:30 92 Room Air 06/04/17 07:30 92 Room Air 06/04/17 06:00 64 16 125/59 (81) 96 Nasal Cannula 2.0 06/04/17 04:00 97 Nasal Cannula 2.0 06/04/17 04:00 36.8 57 17 100/41 (60) 97 Nasal Cannula 2.0 06/04/17 02:00 62 14 109/49 (69) 98 Nasal Cannula 2.0 06/04/17 00:01 37.2 78 20 103/38 (59) 95 Nasal Cannula 2.0 06/03/17 23:59 95 Nasal Cannula 2.0 06/03/17 23:01 82 15 95 Nasal Cannula 2.0 06/03/17 23:00 76 20 90 Nasal Cannula 2.0 06/03/17 22:00 79 30 133/51 (78) 94 Room Air 06/03/17 21:07 37.4 73 23 144/69 93 Room Air 06/03/17 21:04 144/69 (94) 06/03/17 20:56 84 132/71 94 06/03/17 19:00 75 135/70 94 Room Air 06/03/17 17:11 75 16 133/64 95 Room Air 06/03/17 16:55 97 Room Air 06/03/17 15:42 38.8 73 153/89 96 Room Air Laboratory Results: Last 24 Hours Test 06/03/17 16:29 06/03/17 16:46 06/03/17 17:00 06/04/17 00:11 White Blood Count 12.95 K/uL Red Blood Count 5.05 M/uL Hemoglobin 15.7 g/dL Hematocrit 44.8 % Mean Corpuscular Volume 88.7 fL Mean Corpuscular Hemoglobin 31.1 pg Mean Corpuscular Hemoglobin Concent 35.0 g/dl Platelet Count 177 K/uL Mean Platelet Volume 9.9 fL Neutrophils (%) (Auto) 81.0 % Lymphocytes (%) (Auto) 10.0 % Monocytes (%) (Auto) 8.3 % Eosinophils (%) (Auto) 0.2 % Basophils (%) (Auto) 0.3 % Neutrophils # (Auto) 10.50 K/uL Lymphocytes # (Auto) 1.29 K/uL Monocytes # (Auto) 1.07 K/uL Eosinophils # (Auto) 0.02 K/uL Basophils # (Auto) 0.04 K/uL RDW Standard Deviation 41.8 fL RDW Coefficient of Variation 12.9 % Immature Granulocyte % (Auto) 0.2 % Immature Granulocyte # (Auto) 0.03 K/uL Prothrombin Time 10.6 SECONDS Prothromb Time International Ratio 1.0 Activated Partial Thromboplast Time 26.5 SECONDS Partial Thromboplastin Ratio 1.0 Sodium Level 138 mmol/L Potassium Level 3.9 mmol/L Chloride Level 103 mmol/L Carbon Dioxide Level 26 mmol/L Anion Gap 9.0 mmol/L Blood Urea Nitrogen 17 mg/dl Creatinine 0.96 mg/dl Est Creatinine Clear Calc Drug Dose 75.0 ml/min Estimated GFR () 93.1 Estimated GFR (Non- 80.3 BUN/Creatinine Ratio 18.2 Random Glucose 99 mg/dl Calcium Level 9.1 mg/dl Total Bilirubin 1.3 mg/dl Aspartate Amino Transf (AST/SGOT) 11 U/L Alanine Aminotransferase (ALT/SGPT) 22 U/L Alkaline Phosphatase 74 U/L Total Protein 7.7 gm/dl Albumin 3.6 gm/dl Globulin 4.1 gm/dl Albumin/Globulin Ratio 0.9 Monoscreen NEG Bedside Lactic Acid Venous 0.90 mmol/L Urine Color DK YELLOW Urine Appearance CLEAR Urine pH 5.0 Urine Specific [place] 1.033 Urine Protein NEG Urine Glucose (UA) NEG Urine Ketones TRACE Urine Occult Blood 1+ Urine Nitrite NEG Urine Bilirubin NEG Urine Urobilinogen NEG Urine Leukocyte Esterase NEG Urine WBC (Auto) 1-5 /hpf Urine RBC (Auto) 10-30 /hpf Urine Hyaline Casts (Auto) 1-5 /lpf Urine Epithelial Cells (Auto) 0-5 /lpf Urine Bacteria (Auto) NEG Bedside Glucose 149 mg/dl Test 06/04/17 05:55 White Blood Count 13.65 K/uL Red Blood Count 4.80 M/uL Hemoglobin 14.9 g/dL Hematocrit 42.6 % Mean Corpuscular Volume 88.8 fL Mean Corpuscular Hemoglobin 31.0 pg Mean Corpuscular Hemoglobin Concent 35.0 g/dl RDW Standard Deviation 40.2 fL RDW Coefficient of Variation 12.5 % Platelet Count 175 K/uL Mean Platelet Volume 10.2 fL Sodium Level 138 mmol/L Potassium Level 4.1 mmol/L Chloride Level 107 mmol/L Carbon Dioxide Level 23 mmol/L Anion Gap 9.0 mmol/L Blood Urea Nitrogen 16 mg/dl Creatinine 0.88 mg/dl Est Creatinine Clear Calc Drug Dose 81.8 ml/min Estimated GFR () 101.6 Estimated GFR (Non- 87.6 BUN/Creatinine Ratio 18.6 Random Glucose 129 mg/dl Lactic Acid Level 1.1 mmol/L Calcium Level 8.7 mg/dl Phosphorus Level 3.8 mg/dl Magnesium Level 2.1 mg/dl
[2017-06-04] MEDS ORDERED: AMOX1TAB43 PO (13:30)
[2017-06-04] MEDS ORDERED: PRED50TA PO (13:30)
--- NOTE | 2017-06-04 13:36 | Discharge Instructions ---
Discharge Instructions Date of Service Jun 04, 2017. Admission Reason for Admission: Epiglottitis Discharge Discharge Diagnosis / Problem: Epiglottis: throat infection Discharge Goals Goal(s): Decrease discomfort Activity Recommendations Activity Limitations: resume your previous activity Lifting Limitations: none Exercise/Sports Limitations: none . Instructions / Follow-Up Instructions / Follow-Up Return immediately to the Emergency Department for any difficulty breathing or trouble swallowing. Follow up with Dr. Salazar in 2 days if you feel like your neck/throat discomfort is getting worse. Finish all of your antibiotics. Augmentin, 1 tablet by twice twice daily until gone. Regardless follow up with Dr. Salazar in 2 weeks for repeat examination to ensure the infection is gone. Call his office for appointment [phone] The office address is [address] [place] [address]. LOREN [place]man [address] Current Hospital Diet Patient's current hospital diet: Regular Diet Discharge Diet Recommended Diet: Regular Diet Pending Studies Studies pending at discharge: no Medical Emergencies . Who to Call and When: Medical Emergencies: If at any time you feel your situation is an emergency, please call 911 immediately. . Non-Emergent Contact Non-Emergency issues call your: Specialist Contact Number: [phone] Call Non-Emergent contact if: temperature is above 100.5 . . "Provider Documentation" section prepared by Tk Trevizo. . Automatic Blocker Recommendations Automatic Blocker Recommendations: Finish all the antibiotics. Follow up in approximately 2 weeks.
--- NOTE | 2017-06-04 13:41 | Discharge Summary ---
Discharge Summary Date of Service Jun 04, 2017. Discharge Summary Admission Date: Jun 03, 2017 at 19:00 Hospital Course This includes examination of the patient, discharge planning, medication reconciliation, and communication with other providers. Discharge Instructions Please refer to the electronic Patient Visit Report (Discharge Instructions) for additional information.
[2017-06-04] MEDS ORDERED: DEXAMETHASONE 4 MG TAB PO SCH (21:00)
[2017-06-05 14:23] LABS: EBV EARLY ANTIGEN AB >150.00 U/ML
== END 2017-06-04 14:30 | disposition home or self-care (01) | DRG 153 ==
LOC: EDBD 15:33 → C.EDB 15:34 → C.MSICU 19:00 → CANRESERV 19:35 → ENRESERV 19:35 → EDBEDREQSVC 19:42 → ENRESERV 19:45
PROVIDERS: ADMIT Internal Medicine; ATTEND Internal Medicine
DX: J05.10 Acute epiglottitis without obstruction (principal); F17.200 Nicotine dependence, unspecified, uncomplicated